=== PATIENT | female | born 2000 | race Caucasian/White ===

== ENCOUNTER 2024-11-28 11:16 | Emergency (ER) | payer BC ==
[2024-11-28 11:43] VITALS: BP 127/65; PULSE 66
== END 2024-11-28 11:53 | disposition home or self-care (01) ==
LOC: VM.ED 11:16
DX: S61.051A Open bite of right thumb without damage to nail, initial encounter (principal); W54.0XXA Bitten by dog, initial encounter; Y93.89 Activity, other specified
CPT/HCPCS: 99283